=== PATIENT | female | born 2000 | race African-American/Black ===

== ENCOUNTER 2019-12-31 06:05 | Emergency (ER) | payer MEDICAID ==
[2019-12-31 09:43] LABS: ALBUMIN 3.1 g/dL (3.4-5.0); CALCIUM 8.8 mg/dL (8.5-10.1); CREATININE 0.9 mg/dL (0.6-1.0); GFR 95.6; POTASSIUM 3.9 mmol/L (3.5-5.1); TOTAL BILIRUBIN 0.1 mg/dL (0.2-1.0); TOTAL PROTEIN 6.3 g/dL (6.4-8.2)
[2019-12-31 09:47] LABS: HEMATOCRIT 40.7 % (36.0-47.0); HEMOGLOBIN 13.9 g/dL (12.0-15.5); MEAN CORPUSCULAR HEMOGLOBIN 31 pg (25-35); MEAN CORPUSCULAR HGB CONC 34 g/dL (31-37); MEAN CORPUSCULAR VOLUME 92 fL (79-100); RED BLOOD COUNT 4.44 x10^6/uL (3.50-5.40); RED CELL DISTRIBUTION WIDTH 13.5 % (11.5-14.5); WHITE BLOOD COUNT 8.6 x10^3/uL (4.0-11.0)
[2019-12-31 09:48] LABS: BASO % 1 % (0-3); EOS # 0.1 x10^3/uL (0.0-0.7); EOS % 2 % (0-3); LYMPH # 2.8 x10^3/uL (1.0-4.8); LYMPH % 33 % (24-48); MONO # 0.7 x10^3/uL (0.0-1.1); MONO % 8 % (0-9); NEUT # 4.9 x10^3uL (1.8-7.7); NEUT % 57 % (31-73); PLATELET COUNT 198 x10^3/uL (140-400)
[2019-12-31 09:59] LABS: BACTERIA,URINE FEW /HPF (0-FEW); BILIRUBIN,URINE NEG (NEG); CLARITY,URINE CLEAR; COLOR,URINE YELLOW; GLUCOSE,URINE NEG (NEG); NITRITE,URINE NEG (NEG); RBC,URINE OCC /HPF (0-2); SQUAMOUS EPITHELIAL CELL,UR FEW /LPF; UROBILINOGEN,URINE 0.2 mg/dL (0.2 mg/dL); WBC,URINE OCC /HPF (0-4)
[2019-12-31 10:00] LABS: U PREG PATIENT NEGATIVE (NEG)
--- NOTE | 2019-12-31 10:18 | RAD ---
CT ABD PELV W/ IV CONTRST ONLY History: Reason: ABDOMINAL AND PELVIC PAIN / Spl. Instructions: / History: Comparison: None. Technique: After administration of intravenous contrast, helical CT of the abdomen and pelvis was performed from the lung bases through the ischial tuberosities. Coronal and sagittal reconstructions were obtained. 75 mL of Omnipaque 300 were used. One or more of the following dose reduction techniques were utilized: Automated exposure control (AEC), Adjustment of mA and/or kV according to patient size, Use of iterative reconstruction technique such as ASiR, CT scan done according to ALARA and image gently/image wisely Abdomen Findings: The visualized lung bases are clear. The liver, gallbladder, pancreas, spleen, and bilateral adrenal glands are normal. Symmetric renal enhancement. There is no focal renal mass. There is no hydronephrosis. The visualized loops of small bowel are normal. Large colonic stool burden. The visualized loops of large bowel are otherwise normal. There is no evidence of bowel obstruction. Appendix is normal. There is no free fluid. There is no mesenteric or retroperitoneal adenopathy. The abdominal aorta is normal in caliber. Pelvis Findings: Urinary bladder is normal. Uterus is present. Right ovarian cyst measuring 4.3 cm. No pelvic free fluid. There is no pelvic or inguinal adenopathy. There is no acute bony abnormality. IMPRESSION: 1. No acute findings. 2. Large colonic stool burden, which may reflect constipation. 3. Right ovarian cyst measuring 4.3 cm, likely physiologic in a patient of this age. Electronically signed by: Kwan Pina MD (12/31/2019 10:15 AM) [id number]
--- NOTE | 2019-12-31 10:24 | RAD ---
PELVIS COMPLETE DATE: 12/31/2019 7:50 AM HISTORY: Reason: ABDOMEN, PELVIC AND BACK PAIN / Spl. Instructions: / History: COMPARISON: None. TECHNIQUE: Transabdominal pelvic ultrasound was performed. FINDINGS: The uterus measures 9.2 x 4.2 x 3.3 cm. The myometrium demonstrates normal echogenicity without focal lesion. The endometrial echo measures 7 mm. The right ovary measures 5.2 x 4.4 x 2.8 cm. Right ovarian simple cyst measuring 4.3 x 4.8 x 1.8 cm The left ovary measures 2.5 x 1.5 x 1.8 cm. The bilateral ovaries are physiologic in appearance. Normal vascularity in the bilateral ovaries by color Doppler examination. No free fluid. IMPRESSION: 1. Right ovarian simple cyst measuring up to 4.8 cm, likely physiologic. No additional follow-up is required. 2. Normal uterus and ovaries. No evidence of ovarian torsion. Electronically signed by: Kwan Pina MD (12/31/2019 10:21 AM) [id number]
--- NOTE | 2019-12-31 12:18 | PHYS DOC ---
PROVIDER NOTE PROVIDER NOTE PROVIDER NOTE This patient encounter took place during downtime. The H&P was completed on downtime paperwork. Please refer to downtime paperwork for information regarding patient encounter. MAGALI DIALLO MD Dec 31, 2019 12:18
[2019-12-31] MEDS ORDERED: IOHEXOL 300 MG/ML 75 ML VIAL. IV ONE (15:15)
[2019-12-31] MEDS ORDERED: CONTRAST GIVEN. MC PRN (15:30)
== END 2019-12-31 08:25 | disposition home or self-care (01) ==
LOC: ER 06:05
DX: K59.00 Constipation, unspecified (principal); R10.30 Lower abdominal pain, unspecified; R10.2 Pelvic and perineal pain; M54.5 Low back pain
CPT/HCPCS: 36415; 74177; 76856; 80053; 81001; 81025; 83690; 85025; 99285; Q9967